=== PATIENT | female | born 1955 | race Caucasian/White ===

== ENCOUNTER 2017-11-26 13:41 | Emergency (ER) | payer MEDICARE ==
[2017-11-26] MEDS ORDERED: NS 0.9% 1000 ML* 1,000 ML IV SCH (14:00)
--- NOTE | 2017-11-26 14:33 | RAD ---
Indication: Severe headache. Comparison: November 20, 2016 MRI. Technique: Noncontrast CT vertex of skull through foramen magnum. Report: Small volume of hyperdense subarachnoid hemorrhage at the medial aspect of the RIGHT parietal lobe at the level of the centrum semiovale extending to the interhemispheric fissure. No additional extra-axial or intra-axial hemorrhage evident. Unremarkable cerebral sulci, ventricles, and basal cisterns. Negative for lane matter white matter obscuration or mass effect. Unremarkable orbital contents. No fracture or suspicious lesion of the calvarium or skull base evident. Visualized paranasal sinuses and mastoid air spaces. Unremarkable scalp. IMPRESSION: Small volume of RIGHT parietal lobe acute or subacute subarachnoid hemorrhage. Negative for significant mass effect. Results discussed with Dr. Candelario 11/26/2017 2:27 PM EDT
[2017-11-26 14:50] LABS: ABS Basophils 0.1 10^3/ul (0-0.2); ABS Eosinophils 0.1 10^3/ul (0-0.6); ABS Monocytes 0.6 10^3/ul (0-0.8); ABS Neutrophils 10.9 10^3/ul (1.5-7.7); ABS Nucleated RBC 0 10^3/ul; Eosinophil % 0.7 % (0-6); Hematocrit 45 % (35-47); Hemoglobin 15.8 g/dl (12.0-16.0); Lymphocyte % 14.8 % (25-47); Mean Corpuscular HGB Conc 35 g/dl (31-36); Mean Corpuscular Hemoglobin 34 pg (27-31); Mean Corpuscular Volume 97 fL (80-97); Mean Platelet Volume 8.1 um3 (7.4-10.4); Nucleated Red Blood Cells % 0; Platelet Count 289 10^3/ul (150-450); Red Blood Count 4.64 10^6/ul (4.0-5.4); Red Cell Distribution Width 13 % (10.5-15); White Blood Count 13.7 10^3/ul (3.5-10.8)
[2017-11-26] MEDS ORDERED: Morphine VIAL* 4 MG/ML VIAL (1 ml vial) IV ONE (15:11)
[2017-11-26] MEDS ORDERED: Morphine INJ* 10 MG/ML 1 ML CARPUJECT IV ONE (15:11)
[2017-11-26] MEDS ORDERED: Ondansetron INJ* 2 MG/ML VIAL IV ONE ×2 (15:12→16:54)
[2017-11-26 15:13] LABS: INR 0.87 (0.77-1.02)
[2017-11-26 15:32] LABS: EGFR Non-African American 58.9 (>60)
[2017-11-26] MEDS ORDERED: Iodixanol* (CONTRAST) 320 MG/ML 100 ML SDV IV ONE (15:48)
--- NOTE | 2017-11-26 16:18 | ED ---
Aguilar Gore Angela, scribed for Efrem Candelario on 11/26/17 at 1426 . Headache - HPI Summary HPI Summary: This pt is a 62 y/o female presenting to [facility] c/o sudden onset of severe headache since 12:00 today. Pt reports at onset of her headache she was carrying a heavy bag of soil. She additionally notes blurry vision, numbness on her face, left sided weakness, nausea. Per EMS pt was found to be hypertensive. She denies chest pain, SOB. Pt has hx of migraines. - History Of Current Complaint Stated Complaint: HEADACHE Hx Obtained From: Patient, EMS Hx Last Menstrual Period: n/a Onset/Duration: Sudden Onset, Still Present Initially Headache Was: Initial Pain Scale(0-10)= - 9 Currently Pain Is: Severe Timing: Constant Character: Migraine Location of Headache: Diffuse Aggravating Factor: Nothing Allevating Factors: Nothing Associated Signs And Symptoms: Nausea, Visual Changes - blurry vision, Other ( Noted In Comments) - POS: left sided weakness, numbness - Allergies/Home Medications Allergies/Adverse Reactions: Allergies Allergy/AdvReac Type Severity Reaction Status Date / Time MS Mercury [Mercury] AdvReac See Comment Verified 11/13/16 10:45 Home Medications: Home Medications Albuterol HFA INHALER* [Ventolin HFA Inhaler*] 2 puff INH Q4H PRN 11/26/17 [ History Confirmed 11/26/17] BuPROPion XL* [Bupropion XL*] 300 mg PO DAILY WITH MEAL 11/26/17 [History Confirmed 11/26/17] Citalopram TAB* [CeleXA TAB*] 15 mg PO DAILY 11/26/17 [History Confirmed ] Clobetasol Propionate/Emoll [Clobetasol Propionate Emo] 0.05 % TOPICAL DAILY PRN 11/26/17 [History Confirmed 11/26/17] Cyanocobalamin (Vitamin B-12) [Vitamin B-12] 1,000 mcg SL DAILY 11/26/17 [ History Confirmed 11/26/17] Loperamide CAP* [Imodium CAP*] 2 - 4 mg PO Q4H PRN 11/26/17 [History Confirmed 11/26/17] Methscopolamine Salineno 2.5 mg PO TID PRN 11/26/17 [History Confirmed 11/26/17] Multivitamins/Minerals TAB* [Theragran/minerals TAB*] 1 tab PO DAILY 11/26/17 [ History Confirmed 11/26/17] Terbinafine [Lamisil Advanced] 1 % TOPICAL BID PRN 11/26/17 [History Confirmed 11/26/17] guanFACINE TAB* [Tenex TAB*] 2 mg PO BEDTIME 11/26/17 [History Confirmed ] PMH/Surg Hx/FS Hx/Imm Hx Endocrine/Hematology History: Reports: Hx Anticoagulant Therapy - Aspirin twice a week. Denies: Hx Diabetes, Hx Thyroid Disease Cardiovascular History: Denies: Hx Congestive Heart Failure, Hx Deep Vein Thrombosis, Hx Hypertension , Hx Myocardial Infarction, Hx Pacemaker/ICD Respiratory History: Denies: Hx Asthma, Hx Chronic Obstructive Pulmonary Disease (COPD), Hx Lung Cancer, Hx Pneumonia, Hx Pulmonary Embolism GI History: Denies: Hx Gall Bladder Disease, Hx Gastrointestinal Bleed, Hx Ulcer, Hx Urosepsis History: Denies: Hx Kidney Stones, Hx Renal Disease Sensory History: Denies: Hx Hearing Aid Neurological History: Denies: Hx Dementia, Hx Migraine, Hx Seizures, Hx Transient Ischemic Attacks (TIA) Psychiatric History: Reports: Hx Anxiety, Hx Depression Denies: Hx Panic Disorder, Hx Schizophrenia, Hx Bipolar Disorder - Cancer History Hx Chemotherapy: No Hx Radiation Therapy: No - Surgical History Surgery Procedure, Year, and Place: URETHRAL POUCHING - REPAIRED Infectious Disease History: No Infectious Disease History: Denies: Traveled Outside the [place] in Last 30 Days - Family History Known Family History: Negative: Cardiac Disease, Hypertension, Diabetes - Social History Alcohol Use: None Substance Use Type: Reports: None Hx Tobacco Use: Yes Smoking Status (MU): Current Every Day Smoker Amount Used/How Often: <1 PPD Review of Systems Negative: Fever, Chills Positive: Blurred Vision Negative: Chest Pain Negative: Shortness Of Breath Positive: Nausea. Negative: Vomiting Musculoskeletal: Negative Skin: Negative Positive: Headache, Weakness - on the left side, Numbness - on face All Other Systems Reviewed And Are Negative: Yes Physical Exam - Summary Physical Exam Summary: Appearance: Well appearing, no pain distress Skin: warm, dry, reflects adequate perfusion Head/face: normal Eyes: EOMI, EAGLE. Decreased vision on the left. ENT: normal Neck: supple, nontender Respiratory: CTA, breath sounds present Cardiovascular: RRR, pulses symmetrical Abdomen: nontender, soft Bowel: present Musculoskeletal: normal, strength/ROM intact Neuro: sensory motor intact, A&Ox3. Left sided electrical installer weakness. GCS: 15 Triage Information Reviewed: Yes Vital Signs On Initial Exam: Initial Vitals Temp Pulse Resp BP Pulse Ox 98.1 F 63 18 161/82 97 11/26/17 14:12 11/26/17 14:12 11/26/17 14:12 11/26/17 14:12 11/26/17 14:12 Vital Signs Reviewed: Yes Diagnostics - Vital Signs Vital Signs Temp Pulse Resp BP Pulse Ox 11/26/17 14:12 98.1 F 63 18 161/82 97 - Laboratory Lab Results: Lab Results 11/26/17 11/26/17 11/26/17 Range/Units 14:40 14:40 14:40 WBC 13.7 H (3.5-10.8) 10^3/ul RBC 4.64 (4.0-5.4) 10^6/ul Hgb 15.8 (12.0-16.0) g/dl Hct 45 (35-47) % MCV 97 (80-97) fL MCH 34 H (27-31) pg MCHC 35 (31-36) g/dl RDW 13 (10.5-15) % Plt Count 289 (150-450) 10^3/ul MPV 8.1 (7.4-10.4) um3 Neut % (Auto) 79.5 (38-83) % Lymph % (Auto) 14.8 L (25-47) % Russell % (Auto) 4.3 (0-7) % Eos % (Auto) 0.7 (0-6) % Baso % (Auto) 0.7 (0-2) % Absolute Neuts (auto) 10.9 H (1.5-7.7) 10^3/ul Absolute Lymphs (auto) 2.0 (1.0-4.8) 10^3/ul Absolute Monos (auto) 0.6 (0-0.8) 10^3/ul Absolute Eos (auto) 0.1 (0-0.6) 10^3/ul Absolute Basos (auto) 0.1 (0-0.2) 10^3/ul Absolute Nucleated RBC 0 10^3/ul Nucleated RBC % 0 INR (Anticoag Therapy) 0.87 (0.77-1.02) APTT 35.1 (26.0-36.3) seconds Sodium 138 L (139-145) mmol/L Potassium 4.0 (3.5-5.0) mmol/L Chloride 101 (101-111) mmol/L Carbon Dioxide 27 (22-32) mmol/L Anion Gap 10 (2-11) mmol/L BUN 12 (6-24) mg/dL Creatinine 0.96 H (0.51-0.95) mg/dL Est GFR ( Amer) 75.7 (>60) Est GFR (Non-Af Amer) 58.9 (>60) BUN/Creatinine Ratio 12.5 (8-20) Glucose 100 (70-100) mg/dL Calcium 9.8 (8.6-10.3) mg/dL Total Bilirubin 0.70 (0.2-1.0) mg/dL AST 25 (13-39) U/L ALT 36 (7-52) U/L Alkaline Phosphatase 40 (34-104) U/L Total Protein 7.6 (6.4-8.9) g/dL Albumin 4.5 (3.2-5.2) g/dL Globulin 3.1 (2-4) g/dL Albumin/Globulin Ratio 1.5 (1-3) Result Diagrams: 11/26/17 14:40 11/26/17 14:40 Lab Statement: Any lab studies that have been ordered have been reviewed, and results considered in the medical decision making process. - CT Brain CT CT Interpretation: Positive (See Comments) - IMPRESSION: Small volume of RIGHT parietal lobe acute or subacute subarachnoid hemorrhage. Negative for significant mass effect. Dr. Candelario has reviewed this radiology report. CT Interpretation Completed By: Radiologist - EKG 14:30 Cardiac Rate: NL EKG Rhythm: Sinus Rhythm - at 61 bpm EKG Interpretation: No acute changes. Headache Course/Dx - Course Assessment/Plan: Pt is a 62 y/o female who presents with sudden onset of severe headache since 12:00 today. She additionally notes blurry vision, numbness on her face, left sided weakness, nausea. Blood work, brain CT, and EKG were obtained. Brain CT shows small volume of RIGHT parietal lobe acute or subacute subarachnoid hemorrhage. Negative for significant mass effect. Discussed case with Dr. Wallace, neurologist, who reports to order a CTA head/neck and consult neurosurgery. Neurosurgeon, Dr. Woods, was paged at 14:29. I spoke with Dr. Woods who recommends to transfer the pt. I spoke with Dr. Galarza, [facility] who accepted the pt for transfer to the ED. - Diagnoses Differential Diagnosis/HQI/PQRI: Epidural Hematoma, Subdural Hematoma, Migraine , Subarachnoid Hemorrhage, Tension Headache Provider Diagnoses: Subarachnoid hemorrhage - Physician Notifications Discussed Care Of Patient With: Radiologist Time Discussed With Above Provider: 14:26 Instructed by Provider To: Other - Radiologist reports the pt has a subacute subarachnoid hemorrhage. [14:28] I discussed pt care with Dr. Wallace, neurologist , who recommends to call neurosurgeon and order CTA neck/head. [15:18] I spoke with Dr. Woods, neurosurgeon, who recommends transfer to [facility]. [15:41 ] Discussed with Dr. Galarza, at [facility] who accepted the pt for transfer to the ED. - Critical Care Time Critical Care Time: 75-104 min Discharge - Sign-Out/Discharge Documenting (check all that apply): Discharge/Admit/Transfer - Transfer to [facility] - Discharge Plan Condition: Stable Disposition: TRANS HIGHER LVL OF CARE FAC Discharge Disposition Comment: [facility] Referrals: Gideon Larsen MD [Primary Care Provider] - - Billing Disposition and Condition Condition: STABLE Disposition: EMTALA The documentation as recorded by the Aguilar velarde Angela accurately reflects the service I personally performed and the decisions made by , Efrem Candelario.
--- NOTE | 2017-11-26 16:25 | RAD ---
Indication: Subarachnoid hemorrhage, stroke. MRV of the brain performed utilizing 3-D [id number] technique. Multiple maximum intensity projection images were obtained. The sagittal sinus, sigmoid sinus and straight sinus all appear patent and does not appear to be enlarged. Transverse 6 sinus and sigmoid sinus is grossly unremarkable. IMPRESSION: No evidence of venous sinus thrombosis is noted.
--- NOTE | 2017-11-26 17:22 | RAD ---
Indication: Stroke, subarachnoid hemorrhage. Image sequences: Sagittal and axial T1, axial T2, FLAIR, diffusion and susceptibility weighted images of the brain were obtained. Ventricular structures are midline. No midline shift is noted. The extra-axial spaces are unremarkable. There is a area of susceptibility artifact in the sulci in the right parietal lobe just adjacent to the falx consistent with subarachnoid hemorrhage identified on CT. Other areas of slightly subarachnoid hemorrhage is noted more inferiorly. The FLAIR images demonstrates nonspecific signal abnormalities in the frontal and deep periventricular white matter as well as the periatrial white matter. This is nonspecific. Additionally there appears to be some restriction of diffusion in the cortex of the occipital lobe more prominent on the right than on the left with corresponding loss of signal on the ADC map. These may represent early cortical infarcts. No midline shift or mass effect is noted. IMPRESSION: Again noted is susceptibility artifact in the right frontal lobe sulci adjacent to the falx. This is similar to that seen on CT. MR demonstrates cortical restriction of diffusion suspicious for cortical infarcts. This is predominantly in the right occipital and parietal lobe although there is a small amount of left parietal lobe. Nonspecific signal deep white matter abnormalities are noted.
[2017-11-26] MEDS ORDERED: LORazepam INJ* 2 MG/ML 1 ML VIAL ONE (17:34)
[2017-11-26] MEDS ORDERED: LORazepam INJ* 2 MG/ML 1 ML VIAL IV PUSH ONE (17:34)
[2017-11-26] MEDS ORDERED: levETIRAcetam IV* 1,000 MG in NS 0.9% 100 ML* 100 ML IVPB ONE (17:34)
[2017-11-26] MEDS ORDERED: levETIRAcetam IV* 500 MG/5 ML VIAL ONE (17:36)
[2017-11-26 18:29] VITALS: BP 160/80
--- NOTE | 2017-11-27 11:24 | ED ---
Aguilar Gore Angela, lulued for Efrem Candelario on 11/26/17 at 1737 . Progress - Progress Note Progress Note: At 17:34, EMS had arrived and while getting the pt ready to transfer her, she had a seizure. She was given Keppra and Ativan. - Results/Orders Results/Orders: MRI Brain, as read by radiologist IMPRESSION: Again noted is susceptibility artifact in the right frontal lobe sulci adjacent to the falx. This is similar to that seen on CT. MR demonstrates cortical restriction of diffusion suspicious for cortical infarcts. This is predominantly in the right occipital and parietal lobe although there is a small amount of left parietal lobe. Nonspecific signal deep white matter abnormalities are noted. MRV Head, as read by radiologist IMPRESSION: No evidence of venous sinus thrombosis is noted. Dr. Candelario has reviewed these radiology reports. Course/Dx - Diagnoses Provider Diagnoses: Subarachnoid hemorrhage, Seizure - Critical Care Time Critical Care Time: 75-104 min Discharge - Sign-Out/Discharge Documenting (check all that apply): Discharge/Admit/Transfer - Transfer to [facility] - Discharge Plan Condition: Stable Disposition: TRANS HIGHER LVL OF CARE FAC Discharge Disposition Comment: [facility] Referrals: Gideon Larsen MD [Primary Care Provider] - - Billing Disposition and Condition Condition: STABLE Disposition: EMTALA The documentation as recorded by the Aguilar velarde Angela accurately reflects the service I personally performed and the decisions made by [employer] bradford Emmanuel.
== END 2017-11-26 18:28 | disposition short-term general hospital (02) ==
LOC: ED 13:41
DX: I60.9 Nontraumatic subarachnoid hemorrhage, unspecified (principal); I10 Essential (primary) hypertension; R56.9 Unspecified convulsions; R11.0 Nausea; H53.8 Other visual disturbances; R53.1 Weakness; R20.0 Anesthesia of skin; Z79.82 Long term (current) use of aspirin; F41.9 Anxiety disorder, unspecified; F32.9 Major depressive disorder, single episode, unspecified; F17.210 Nicotine dependence, cigarettes, uncomplicated
CPT/HCPCS: 36415; 70450; 70544; 70551; 80053; 85025; 85610; 85730; 93005; 96361; 96374; 96375; 96376; 99283; J2060; J2270; J2405